=== PATIENT | female | born 1990 | race African-American/Black ===

== ENCOUNTER 2020-07-10 09:22 | Emergency (ER) | payer OTHER ==
[~2020-07-10] VITALS: Ht 165.1 cm; Wt 108.9 kg
[2020-07-10 09:34] VITALS: BP 122/81; Ht 165.1 cm; Wt 108.9 kg
== END 2020-07-10 11:01 | disposition home or self-care (01) ==
LOC: ED 09:22
DX: J03.90 Acute tonsillitis, unspecified (principal); Z20.828 Contact with and (suspected) exposure to other viral communicable diseases; Z88.0 Allergy status to penicillin
CPT/HCPCS: U0003

== ENCOUNTER 2020-08-18 11:46 | Emergency (ER) | payer OTHER ==
[~2020-08-18] VITALS: Ht 165.1 cm; Wt 108.9 kg
[2020-08-18 12:04] VITALS: BP 141/83; Ht 165.1 cm; Wt 108.9 kg
== END 2020-08-18 13:30 | disposition home or self-care (01) ==
LOC: ED 11:46
DX: J03.90 Acute tonsillitis, unspecified (principal); Z88.0 Allergy status to penicillin

== ENCOUNTER 2020-08-20 10:42 | Emergency (ER) | payer OTHER ==
[~2020-08-20] VITALS: Ht 165.1 cm; Wt 108.9 kg
[2020-08-20 10:53] VITALS: Ht 165.1 cm; Wt 108.9 kg
[2020-08-20 11:12] VITALS: BP 124/73
== END 2020-08-20 11:12 | disposition home or self-care (01) ==
LOC: ED 10:42
DX: J03.90 Acute tonsillitis, unspecified (principal); Z88.0 Allergy status to penicillin